=== PATIENT | female | born 1955 | race Caucasian/White ===

== ENCOUNTER 2020-06-05 09:55 | Day surgery (SDC) | payer MEDICARE, OTHER ==
[2020-06-05] MEDS: Polymyxin B/Trimethoprim 10 ML Bottle EYELF SCH ×4 (10:03→11:30)
[2020-06-05] MEDS: Brimonidine 0.2% Ophth Soln 5 ML Bottle EYELF SCH ×4 (10:11→11:30)
[2020-06-05] MEDS: Phenylephrine 2.5% Ophth Soln 2 ML Bot EYELF SCH ×6 (10:16→10:59)
[2020-06-05] MEDS: Tropicamide 1% Ophth Soln 15 ML Bottle EYELF SCH ×4 (10:19→10:40)
[2020-06-05] MEDS: Tetracaine HCl/PF 0.5% 4 ML Bottle EYEBOTH SCH ×5 (10:42→11:19)
[2020-06-05] MEDS: Lidocaine 1% PF 2 ML SDV INJECT SCH ×2 (10:59→11:19)
[2020-06-05] MEDS: Pilocarpine 4% Ophth Soln 15 ML Bot EYELF SCH ×2 (11:00→11:30)
[2020-06-05] MEDS: Cefuroxime 10 MG/ML SYRINGE EYELF SCH ×2 (11:00→11:30)
--- NOTE | 2020-06-05 11:35 | PCM48HPAN ---
Post Anesthesia Note - EVALUATION WITHIN 48HRS OF ANESTHETIC Vital Signs in Normal Range: Yes Patient Participated in Evaluation: Yes Respiratory Function Stable: Yes Airway Patent: Yes Cardiovascular Function Stable: Yes Hydration Status Stable: Yes Pain Control Satisfactory: Yes Nausea and Vomiting Control Satisfactory: Yes Mental Status Recovered: Yes
--- NOTE | 2020-06-05 11:36 | PCM.PREANE ---
Preanesthetic Assessment - Anesthesia/Transfusion/Family Hx Anesthesia History: Prior Anesthesia Without Reaction Family History of Anesthesia Reaction: No Transfusion History: No Prior Transfusion(s) - Review of Systems General: No Symptoms Pulmonary: No Symptoms Cardiovascular: No Symptoms Gastrointestinal: No Symptoms Neurological: No Symptoms Other: Reports: Anxiety - Physical Assessment NPO Status Date: 06/04/20 NPO Status Time: 00:00 Height: 1.6 m Weight: 72.575 kg ASA Class: 2 Mental Status: Alert & Oriented x3 Airway Class: Mallampati = 1 Dentition: Reports: Normal Dentition Thyro-Mental Finger Breadths: 3 Mouth Opening Finger Breadths: 3 ROM/Head Extension: Full Lungs: Clear to Auscultation, Normal Respiratory Effort Cardiovascular: Regular Rate, Regular Rhythm - Allergies Allergies/Adverse Reactions: Allergies Allergy/AdvReac Type Severity Reaction Status Date / Time candesartan [From Atacand] Allergy Cannot Verified 06/04/20 13:04 Remember hydrochlorothiazide Allergy Cannot Verified 06/04/20 13:04 Remember lisinopril Allergy Cannot Verified 06/04/20 13:04 Remember - Anesthesia Plan Pre-Op Medication Ordered: Beta Pilar Beta Pilar: Metoprolol Med Last Dose Date: 06/05/20 Med Last Dose Time: 09:00 - Acknowledgements Anesthesia Type Planned: MAC Pt an Appropriate Candidate for the Planned Anesthesia: Yes Alternatives and Risks of Anesthesia Discussed w Pt/Guardian: Yes Pt/Guardian Understands and Agrees with Anesthesia Plan: Yes PreAnesthesia Questionnaire - HOME MEDS Home Medications: Home Meds Amitriptyline [Elavil] 25 mg PO DAILY 06/04/20 [History] Escitalopram Oxalate [Lexapro] 20 mg PO DAILY 06/04/20 [History] Metoprolol Succinate 100 mg PO DAILY 06/04/20 [History] Vit A/Vit C/Vit E/Zinc/Copper [Eye Multivitamin Tablet] 1 tab PO DAILY 06/04/20 [History] amLODIPine Besylate [Norvasc] 10 mg PO DAILY 06/04/20 [History] - CURRENT (IN HOUSE) MEDS Current Meds: Current Medications Brimonidine Tartrate (Brimonidine 0.2% Ophth Soln 5 Ml Bottle) 0 ml EYELF ASDIRECTED [facility] Stop: 06/05/20 23:00 Last Admin: 06/05/20 11:01 Dose: 1 ml Documented by: Cefuroxime Sodium (Cefuroxime 10 Mg/Ml Syringe) 0 mg EYELF ASDIRECTED [facility] Stop: 06/05/20 23:00 Last Admin: 06/05/20 11:00 Dose: 10 mg Documented by: Lidocaine HCl (Lidocaine 1% Pf 2 Ml Sdv) 0 ml INJECT ASDIRECTED [facility] Stop: 06/05/20 23:00 Last Admin: 06/05/20 10:59 Dose: 1 ml Documented by: Phenylephrine HCl (Phenylephrine 2.5% Ophth Soln 2 Ml Bot) 0 ml EYELF ASDIRECTED [facility] Stop: 06/05/20 23:00 Last Admin: 06/05/20 10:59 Dose: 1 ml Documented by: Pilocarpine HCl (Pilocarpine 4% Ophth Soln 15 Ml Bot) 0 ml EYELF ASDIRECTED [facility] Stop: 06/05/20 23:00 Last Admin: 06/05/20 11:00 Dose: 1 ml Documented by: Polymyxin/Trimethoprim Sulfate (Polymyxin B/Trimethoprim 10 Ml Bottle) 0 ml EYELF ASDIRECTED [facility] Stop: 06/05/20 23:00 Last Admin: 06/05/20 11:00 Dose: 1 ml Documented by: Tetracaine HCl (Tetracaine Hcl/Pf 0.5% 4 Ml Bottle) 0 ml EYEBOTH ASDIRECTED [facility] Stop: 06/05/20 23:00 Last Admin: 06/05/20 10:59 Dose: 1 ml Documented by: Tropicamide (Tropicamide 1% Ophth Soln 15 Ml Bottle) 0 ml EYELF ASDIRECTED [facility] Stop: 06/05/20 23:00 Last Admin: 06/05/20 10:40 Dose: 1 drop Documented by:
== END 2020-06-05 12:08 | disposition home or self-care (01) ==
LOC: JD.SDS 09:55
PROVIDERS: ATTEND Ophthalmology
DX: H25.813 Combined forms of age-related cataract, bilateral (principal); H40.003 Preglaucoma, unspecified, bilateral; H16.223 Keratoconjunctivitis sicca, not specified as Sjogren's, bilateral; H16.103 Unspecified superficial keratitis, bilateral; H02.834 Dermatochalasis of left upper eyelid; H02.831 Dermatochalasis of right upper eyelid; H43.813 Vitreous degeneration, bilateral; I10 Essential (primary) hypertension; Z88.8 Allergy status to other drugs, medicaments and biological substances; Z98.890 Other specified postprocedural states
CPT/HCPCS: 66984; J0697; C1780

== ENCOUNTER 2021-12-29 08:51 | Emergency (ER) | payer MEDICARE, OTHER ==
[2021-12-29] MEDS ORDERED: Sodium Chloride 0.9% 10 ML Syringe FLUSH PRN (09:26)
[2021-12-29] MEDS ORDERED: Aspirin 81 MG Tab.Chew PO ONE (09:28)
== END 2021-12-29 14:15 | disposition home or self-care (01) ==
LOC: JD.ED 08:51
DX: R07.89 Other chest pain (principal); I10 Essential (primary) hypertension; Z88.8 Allergy status to other drugs, medicaments and biological substances; Z79.899 Other long term (current) drug therapy; Z90.49 Acquired absence of other specified parts of digestive tract
CPT/HCPCS: 36415; 71045; 71275; 80053; 84443; 84484; 85025; 85379; 93005; 99285; A9270; J3490